=== PATIENT | female | born 1945 | race Caucasian/White ===

== ENCOUNTER 2016-10-15 08:30 | Day surgery (SDC) | payer MEDICARE ==
[2016-10-10 12:50] LABS: HEMATOCRIT 38.1 % (36.0-47.0); HEMOGLOBIN 12.4 g/dL (12.0-15.5); HGB HCT DIFFERENCE -0.9; MEAN CORPUSCULAR HEMOGLOBIN 31.4 pg (27.0-33.4); MEAN CORPUSCULAR HGB CONC 32.5 g/dL (32.0-36.0); MEAN CORPUSCULAR VOLUME 97 fl (80-97); RED BLOOD COUNT 3.94 10^6/uL (3.72-5.28); RED CELL DISTRIBUTION WIDTH 13.4 % (11.5-14.0); WHITE BLOOD COUNT 8.7 10^3/uL (4.0-10.5)
--- NOTE | 2016-10-10 13:00 | EKG REPORT ---
SEVERITY:- ABNORMAL ECG - SINUS RHYTHM LEFT BUNDLE BRANCH BLOCK : Confirmed by: Vladislav Zimmerman MD 10-Oct-2016 13:00:04
[2016-10-10 13:01] LABS: APPEARANCE,URINE CLEAR; BILIRUBIN,URINE NEGATIVE (NEGATIVE); GLUCOSE, URINE NEGATIVE (NEGATIVE); KETONES,URINE NEGATIVE (NEGATIVE); LEUKOCYTE ESTERASE,URINE LARGE (NEGATIVE); NITRITE,URINE NEGATIVE (NEGATIVE); PROTEIN,URINE NEGATIVE (NEGATIVE); URINE SPECIFIC GRAVITY 1.011; UROBILINOGEN,URINE NEGATIVE mg/dL (<2.0)
[2016-10-10 13:09] LABS: ANION GAP 15 (5-19); BLOOD UREA NITROGEN 22 mg/dL (7-20); CALCIUM 10.2 mg/dL (8.4-10.2); CARBON DIOXIDE 23 mmol/L (22-30); CHLORIDE 101 mmol/L (98-107); CREATININE RESULT 1.12 mg/dL (0.52-1.25); GLUCOSE 87 mg/dL (75-110); POTASSIUM 5.2 mmol/L (3.6-5.0); SODIUM 138.6 mmol/L (137-145)
[~2016-10-15 08:30] MED LIST: CEFAZOLIN 2 GM/D5W RTU 2 GM/50 ML RTUPB IV PRN; DEXMEDETOMIDINE INJ 80 MCG/20 ML VIAL IV ONE; LACTATED RINGERS 1000 ML IV PRN; LIDOCAINE 0.5% INJ-PF (5 MG/ML) 50 ML SDV SUBCUT PRN; MIDAZOLAM 2 MG/2 ML INJ ONE; MORPHINE SULFATE 10 MG/ML INJ ONE; PROPOFOL INJ 200 MG/20 ML VIAL IV ONE
[2016-10-15] MEDS ORDERED: LIDOCAINE 1%/EPINEPHRINE INJ 20 ML VIAL ONE (08:48)
[2016-10-15] MEDS ORDERED: BUPIVACAINE HCL 0.5 % INJ/PF 30 ML SDV ONE (08:48)
[2016-10-15] MEDS ORDERED: MORPHINE SULFATE 10 MG/ML INJ IV PRN (09:37)
[2016-10-15] MEDS ORDERED: DIPHENHYDRAMINE HCL 50 MG/ML VIAL IV PRN (09:37)
[2016-10-15] MEDS ORDERED: PROMETHAZINE HCL INJ 25 MG/1 ML VIAL IV PRN (09:37)
[2016-10-15] MEDS ORDERED: FENTANYL CITRATE INJ/PF 100 MCG/2 ML AMPUL IV PRN ×3 (09:37)
[2016-10-15] MEDS ORDERED: ONDANSETRON HCL INJ/PF 4 MG/2 ML SDV IV PRN ×2 (09:37→10:36)
--- NOTE | 2016-10-15 10:18 | Operative Report ---
Operative Report DATE OF SURGERY: 10/15/16 PREOPERATIVE DIAGNOSIS: Left medial meniscal tear POSTOPERATIVE DIAGNOSIS: Bucket-handle tear left medial meniscus. 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 Intact anterior cruciate ligament. Lateral meniscal tear. Grade 2 chondral malacia lateral compartment. Grade 1 chondral malacia the patellofemoral compartment OPERATION: Arthroscopic partial medial and lateral meniscectomy SURGEON: KRISTEN SUAREZ ANESTHESIA: LMAC PROCEDURE: With the patient supine on the operating table left looks terms prepped and draped in sterile fashion. The knee is insufflated with, should Marcaine, lidocaine, and epinephrine. Through medial and lateral patella portals. Subsequently medial lateral of toe portals are graded. Structuring our scope and debridements mentation. Joint is examined Mrs. Antonio fashion findings as above. A large bucket-handle tear of the medial meniscus is identified between 8:00 and 12:00 on the face of the dial. This is removed with a grabber and then trimmed with the mechanical shaver. There is exposed bone on the medial tibial plateau and fibrillated cartilage on the medial femoral condyle. In the lateral compartment there is grade 2 chondral malacia with chondral fissuring and the 5 mm protein be buried. There is a lateral degenerative meniscus tear from approximately 1:00 to 5:00 on the face the dial. This debrided using electro-frequency ablation probe. The joint is examined again Mrs. Medick fashion with no new findings. The initial mentation is removed. The portals reapproximated using nylon. A sterile compressive dressing was applied and the patient's returned to PACU in satisfactory condition.
[2016-10-15] MEDS ORDERED: ONDANSETRON HCL INJ/PF 4 MG/2 ML SDV ONE (10:25)
[2016-10-15] MEDS ORDERED: ACETAMINOPHEN 325 MG TABLET PO PRN (10:36)
[2016-10-15 14:29] VITALS: BP 110/54
== END 2016-10-15 14:10 | disposition home or self-care (01) ==
LOC: OROUT 08:30
PROVIDERS: ATTEND Orthopaedic Surgery
PROC: 0SBD4ZZ Excision of Left Knee Joint, Percutaneous Endoscopic Approach (ICD-10-PCS; 2016-10-15)
PROC: 0SBD4ZZ Excision of Left Knee Joint, Percutaneous Endoscopic Approach (ICD-10-PCS; principal; 2016-10-15 10:30)
DX: M25.562 Pain in left knee (principal); Z79.899 Other long term (current) drug therapy; M25.561 Pain in right knee; Z79.82 Long term (current) use of aspirin; Z79.1 Long term (current) use of non-steroidal anti-inflammatories (NSAID); I10 Essential (primary) hypertension; M19.90 Unspecified osteoarthritis, unspecified site; M22.42 Chondromalacia patellae, left knee; S83.212A Bucket-handle tear of medial meniscus, current injury, left knee, initial encounter; S83.282A Other tear of lateral meniscus, current injury, left knee, initial encounter; X58.XXXA Exposure to other specified factors, initial encounter
CPT/HCPCS: 93005; 36415 ×2; 84132; 85027; 80048; 81001; 71020; 93010; 29880; A9270; J2250; J3490 ×2; J2270; J2405; J2704; J0690; 1400

== ENCOUNTER 2016-11-03 19:01 | Observation (INO) | payer MEDICARE ==
--- NOTE | 2016-11-03 19:50 | ER Document Report ---
ED Medical Screen (RME) - General Stated Complaint: CHEST PAIN Notes: 71 year old female, started having chest pain (mid lower sternum, going through to back) at 5:30 PM while taking in horses, felt nauseated, symptoms lasted 45 minutes. Denies shortness of breath. Patient took ASA 324 mg. Patient denies any current symptoms. Symptoms recurred for a short time in waiting room. PMH HTN. Non-smoker, no FH [place]. TRAVEL OUTSIDE OF THE [place] IN LAST 30 DAYS: No - Related Data Allergies/Adverse Reactions: codeine [Codeine] Allergy (Severe, Verified 10/10/16 10:27) n and v meperidine HCl [From Demerol] Allergy (Severe, Verified 10/10/16 10:27) n and v celecoxib [From Celebrex] Allergy (Mild, Verified 10/10/16 10:27) rash Past Medical History - Past Medical History Cardiac Medical History: Reports: Hx Hypercholesterolemia, Hx Hypertension - on meds Denies: Hx Coronary Artery Disease, Hx Heart Attack Pulmonary Medical History: Denies: Hx Asthma, Hx Bronchitis, Hx COPD, Hx Pneumonia Neurological Medical History: Denies: Hx Cerebrovascular Accident, Hx Seizures Musculoskeltal Medical History: Reports Hx Arthritis - "all over" Past Surgical History: Denies: Hx Pacemaker - Immunizations Hx Diphtheria, Pertussis, Tetanus Vaccination: Yes - Tetanus only 03/20/11 Physical Exam - Vital signs Vitals: Temp Pulse Resp BP Pulse Ox 97.5 F 61 16 154/59 H 100 11/03/16 19:41 11/03/16 19:41 11/03/16 19:41 11/03/16 19:41 11/03/16 19:41 - Respiratory Respiratory status: No respiratory distress Breath sounds: No: Decreased air movement, Wheezing - Cardiovascular Rhythm: Regular. No: Tachycardia Heart sounds: Normal auscultation, S1 appreciated, S2 appreciated Murmur: Yes - 1/6 hear best in at RSB Course - Vital Signs Vital signs: Temp Pulse Resp BP Pulse Ox 97.5 F 61 16 154/59 H 100 11/03/16 19:41 11/03/16 19:41 11/03/16 19:41 11/03/16 19:41 11/03/16 19:41
[2016-11-03 21:25] LABS: ABSOLUTE EOSINOPHILS # (AUTO) 0.3 10^3/uL (0.0-0.6); ABSOLUTE LYMPHOCYTES (AUTO) 1.9 10^3/uL (0.5-4.7); ABSOLUTE MONOCYTES (AUTO) 0.6 10^3/uL (0.1-1.4); BASOPHILS % (AUTO) 0.5 % (0-2); EOSINOPHILS % (AUTO) 3.6 % (0-6); HEMATOCRIT 34.8 % (36.0-47.0); HEMOGLOBIN 11.5 g/dL (12.0-15.5); HGB HCT DIFFERENCE -0.3; LYMPHOCYTES % (AUTO) 23.9 % (13-45); MEAN CORPUSCULAR HEMOGLOBIN 31.6 pg (27.0-33.4); MEAN CORPUSCULAR HGB CONC 33.1 g/dL (32.0-36.0); MEAN CORPUSCULAR VOLUME 96 fl (80-97); MONOCYTES % (AUTO) 7.7 % (3-13); RED BLOOD COUNT 3.65 10^6/uL (3.72-5.28); SEGMENTED NEUTROPHILS % (AUTO) 64.3 % (42-78); WHITE BLOOD COUNT 7.8 10^3/uL (4.0-10.5)
[2016-11-03 21:42] LABS: ALANINE AMINOTRANSFERASE 33 U/L (9-52); ALBUMIN 4.3 g/dL (3.5-5.0); ALKALINE PHOSPHATASE 86 U/L (38-126); ANION GAP 8 (5-19); ASPARTATE AMINO TRANSFERASE 28 U/L (14-36); BILIRUBIN,TOTAL 0.5 mg/dL (0.2-1.3); BLOOD UREA NITROGEN 21 mg/dL (7-20); CALCIUM 10.1 mg/dL (8.4-10.2); CARBON DIOXIDE 28 mmol/L (22-30); CHLORIDE 103 mmol/L (98-107); CREATINE KINASE 67 U/L (30-135); CREATININE RESULT 1.13 mg/dL (0.52-1.25); GLUCOSE 103 mg/dL (75-110); POTASSIUM 4.7 mmol/L (3.6-5.0); SODIUM 139.1 mmol/L (137-145); TOTAL PROTEIN 7.9 g/dL (6.3-8.2)
--- NOTE | 2016-11-03 21:51 | EKG REPORT ---
SEVERITY:- ABNORMAL ECG - SINUS RHYTHM LEFT BUNDLE BRANCH BLOCK : Confirmed by: Cathie Savage 03-Nov-2016 21:50:32
[2016-11-03 21:53] LABS: CREATINE KINASE MB 0.48 ng/mL (<4.55); TROPONIN I 0.015 ng/mL
--- NOTE | 2016-11-03 22:33 | ER Document Report ---
ED Cardiac - General Mode of Arrival: Ambulatory Information source: Patient TRAVEL OUTSIDE OF THE [place] IN LAST 30 DAYS: No - HPI Patient complains to provider of: Chest pain Was the onset of pain: Sudden Chest pain location: Substernal Chest pain radiation location: Back Cardiac risk factors: Hypertension, Dyslipidemia Positive cardiac history: No Associated symptoms: Nausea/vomiting, Other - "felt hot" Exacerbated by: Denies Relieved by: Nothing <JOSE ANGEL OLVERA - Last Filed: 11/03/16 22:46> <JHOAN KESSLER - Last Filed: 11/04/16 04:48> - General Chief Complaint: Chest Pain Stated Complaint: CHEST PAIN Notes: Patient is a 71-year-old female that presents to the emergency department today with complaints of chest pain which began this evening around 1730. Patient states the pain lasted for approximately 45 minutes and radiated to her back. Patient states she initially thought it was indigestion however it was not relieved with Maalox. Patient states she was bringing her horses into the barn when her chest pain began. Patient states the pain subsided, but she decided to come to the emergency department and while in the waiting room her pain started again, lasting for 10-15 minutes. Patient states she was nauseated and "felt hot" as well. Patient denies any shortness of breath. Patient has not had a stress test in the past. (JOSE ANGEL OLVERA) - Related Data Allergies/Adverse Reactions: codeine [Codeine] Allergy (Severe, Verified 10/10/16 10:27) n and v meperidine HCl [From Demerol] Allergy (Severe, Verified 10/10/16 10:27) n and v celecoxib [From Celebrex] Allergy (Mild, Verified 10/10/16 10:27) rash Past Medical History - General Information source: Patient, [facility] Records - Social History Smoking Status: Never Smoker Cigarette use (# per day): No Frequency of alcohol use: None Drug Abuse: None Lives with: Family Family History: Reviewed & Not Pertinent Patient has suicidal ideation: No Patient has homicidal ideation: No - Past Medical History Cardiac Medical History: Reports: Hx Hypercholesterolemia, Hx Hypertension - Lisinopril Musculoskeltal Medical History: Reports Hx Arthritis - "all over" Past Surgical History: Reports: Hx Orthopedic Surgery - Knee surgery, 10/15/16 - Immunizations Hx Diphtheria, Pertussis, Tetanus Vaccination: Yes - Tetanus only 03/20/11 Hx Pneumococcal Vaccination: 06/25/09 <JOSE ANGEL OLVERA - Last Filed: 11/03/16 22:46> Review of Systems - Review of Systems Constitutional: See HPI, Other - "feeling hot" EENT: No symptoms reported Cardiovascular: See HPI, Chest pain Respiratory: denies: Short of breath Gastrointestinal: See HPI, Nausea. denies: Vomiting Genitourinary: No symptoms reported Female Genitourinary: No symptoms reported Musculoskeletal: No symptoms reported Skin: No symptoms reported Hematologic/Lymphatic: No symptoms reported Neurological/Psychological: No symptoms reported -: Yes All other systems reviewed and negative <JOSE ANGEL OLVERA - Last Filed: 11/03/16 22:46> Physical Exam <JOSE ANGEL OLVERA - Last Filed: 11/03/16 22:46> <JHOAN KESSLER - Last Filed: 11/04/16 04:48> - Vital signs Vitals: Temp Pulse Resp BP Pulse Ox 97.5 F 61 16 154/59 H 100 11/03/16 19:41 11/03/16 19:41 11/03/16 19:41 11/03/16 19:41 11/03/16 19:41 (JOSE ANGEL OLVERA) (JHOAN KESSLER) - Notes Notes: Physical Exam: General: Alert, appears well. HEENT: Normocephalic. Atraumatic. PERRL. Extraocular movements intact. Oropharynx clear. Neck: Supple. Non-tender. Respiratory: No respiratory distress. Clear and equal breath sounds bilaterally. Cardiovascular: Regular rate and rhythm. Abdominal: Normal Inspection. Non-tender. No distension. Normal Bowel Sounds. Back: Non-tender. No deformity or step off. Extremities: Moves all four extremities. Upper extremities: Normal inspection. Non-tender. Normal ROM. Lower extremities: Normal inspection. Non-tender. No edema. Normal ROM. Neurological: Normal cognition. AAOx4. Normal speech. Psychological: Normal affect. Normal Mood. Skin: Warm. Dry. Normal color. (JOSE ANGEL OLVERA) Course - Laboratory Result Diagrams: 11/03/16 21:00 11/03/16 21:00 <JOSE ANGEL OLVERA - Last Filed: 11/03/16 22:46> - Laboratory Result Diagrams: 11/03/16 21:00 11/04/16 03:35 - Diagnostic Test Radiology reviewed: Reports reviewed - EKG Interpretation by Me Rate: Normal Rhythm: NSR [employer]/QRS: LBBB <JHOAN KESSLER - Last Filed: 11/04/16 04:48> - Re-evaluation Re-evalutation: Patient is a 71-year-old female who comes in complaining of chest pain at rest. Patient with a history of high blood pressure and high cholesterol. Patient also recently had knee surgery. Discussed with the hospitalist service who will admit to telemetry observation. Of note, d-dimer was elevated. CTA chest was ordered but the patient went for a VQ scan ordered by the hospitalist service before the CTA. Patient has no difficulty breathing, tachycardia, or pleuritic chest pain. She is chest pain-free at the time of admission. Patient did take aspirin today. Understands agrees with plan. Of note, the patient has an old left bundle branch block on her EKG. Blood work is within normal limits. (JHOAN KESSLER) - Vital Signs Vital signs: Temp Pulse Resp BP Pulse Ox 97.7 F 73 19 142/58 H 100 11/04/16 03:08 11/04/16 03:08 11/04/16 03:08 11/04/16 03:08 11/04/16 03:08 (JOSE ANGEL OLVERA) (JHOAN KESSLER) - Laboratory Laboratory results interpreted by me: 11/03/16 11/03/16 11/03/16 21:00 21:00 21:00 RBC 3.65 L Hgb 11.5 L Hct 34.8 L D-Dimer 0.57 H BUN 21 H Est GFR ( Amer) 57 L Est GFR (Non-Af Amer) 47 L (JOSE ANGEL OLVERA) (JHOAN KESSLER) Discharge <JOSE ANGEL OLVERA - Last Filed: 11/03/16 22:46> - Discharge Admitting Provider: Hospitalist - [place] [facility] Admitted: Telemetry <JHOAN KESSLER - Last Filed: 11/04/16 04:48> - Discharge Clinical Impression: Chest pain Qualifiers: Chest pain type: other chest pain Qualified Code(s): R07.89 - Other chest pain Condition: Stable Disposition: ADMITTED OBSERVATION Scribe Attestation: 11/04/16 04:48 I personally performed the services described in the documentation, reviewed and edited the documentation which was dictated to the scribe in my presence, and it accurately records my words and actions. (JHOAN KESSLER) Scribe Documentation - Scribe Written by Scribe:: Matt Baires, [id number] 11/03/16 acting as scribe for :: Deedee <JOSE ANGEL OLVERA - Last Filed: 11/03/16 22:46>
[2016-11-03] MEDS ORDERED: ACETAMINOPHEN 325 MG TABLET PO PRN (23:32)
[2016-11-04] MEDS ORDERED: NORMAL SALINE 1000 ML 1,000 ML IV PRN ×2 (02:40→05:17)
--- NOTE | 2016-11-04 04:05 | PDOC H&P ---
History of Present Illness Admission Date/PCP: 11/04/16 02:47 Dr. Miguel Luna Patient complains of: chest pain History of Present Illness: NICOL RM is a 71 year old female with underlying hypertension, hyperlipidemia, and arthritis but no personal or family history of coronary artery disease who presents to the emergency room for evaluation of onset of lower substernal/upper epigastric pain that started approximate 5:30 PM on the as she was leading her horses back into their barn. Lasted about 45 minutes. Radiated to her back. No relief with Maalox. Eventually resolved on its own. She could only describe the pain as stating that it "just hurt." She came to the emergency room. In the waiting room, pain recurred lasting for 10-15 minutes. Associated nausea and "hot" sensation. No shortness of breath. Distant history of a similar milder episode of discomfort that was relieved with Zantac. No known peptic ulcer disease or underlying reflux. Status post arthroscopic repair of left meniscal tear along with "removal of debris," according to patient, 10/15/2016. Did not take any type of anticoagulant postoperatively. No history of pulmonary embolus or DVT. No recent long trip with prolonged inactivity, or unusual lower extremity swelling or tenderness. Distant history of probable superficial venous thrombosis, while on oral contraceptives. Stopped the oral contraceptives and only took aspirin. No prior cardiac workup. currently resting quietly, chest pain-free. Patient has been discussed with emergency room physician who evaluated the patient. . Laboratory results are listed in [employer] and are reviewed. X-ray summary results are listed below, with full report(s) reviewed. . EKG reviewed. And compared to a tracing from [place] of last month. Social history/personal habits: . 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 Allergies/adverse reactions are listed in [employer] and are reviewed. Home medications are reviewed by discussion with patient and are to be reconciled by nursing staff in [facility]. Home medications initially autopopulated into [employer] may not accurately reflect patient's true medications, dosages, and/or frequencies. Compliant with medications. REVIEW OF SYSTEMS: Constitutional: No fever or chills. Eyes: Wears glasses. ENT: No swallowing problems or complaints. No hearing problems or complaints. Pulmonary: No current complaints. Cardiovascular: See history and present illness. Gastrointestinal: See history and present illness. Skin: No current complaints, including rashes. Hematologic: No unusual easy bruising or bleeding. Neurologic: No current complaints, including numbness or tingling. Musculoskeletal: Joint pain from arthritis. Psychiatric: No current complaints, including anxiety or depression. Endocrine: No current complaints, including polyuria. Genitourinary: No current complaints, including dysuria. PHYSICAL EXAMINATION: 5 feet 2 inches tall. 71.6 kg. BMI 28.9 kg/m. Temperature 97.5. Pulse 73 and regular. 142/58. Respirations 19 and unlabored. 100 percent saturation on room air. Floor nurse Alli is present. Well-nourished well-developed elderly female appearing a number of years younger than her stated age. Pleasant awake alert and cooperative. No obvious distress other than perhaps mildly anxious. Skin is warm and dry. No grossly obvious evidence of rash in areas of skin examined. No subcutaneous nodules palpated. ENT: Hearing grossly normal to normal conversation. Tongue midline on protrusion pink and slightly tacky. Eyes: No scleral icterus. Pupils equal and reactive to light at 4 mm. [place] conjunctivae. Neck is supple and nontender to gentle active range of motion and palpation. Midline trachea. No palpable thyroid nodule mass enlargement or tenderness. Lymphatic: No palpable cervical or clavicular nodes. Neck and lymphatic exams limited by patient body habitus. Psychiatric: Reasonable insight into acute and chronic medical issues. Oriented to time location and why here. Lungs: Auscultation reveals clear and equal breath sounds bilaterally. No use of accessory respiratory muscles. Cardiovascular: Heart regular rate and rhythm, without gallop murmur or rub. No carotid or abdominal aortic bruits. No ankle or pedal edema. palpable dorsalis pedis pulses. Abdomen: soft, , slightly distended nontender with positive bowel sounds. Unable to adequately evaluate abdomen for masses or organomegaly due to distention. Compression of the upper epigastrium does seem to reproduce her previously noted chest discomfort. Sternal compression does not. Extremities: Feet are warm and dry. No calf tenderness to compression. No grossly obvious visual evidence of calf swelling. Gentle manipulation of lower extremities fails to reveal any obvious evidence of injury or instability to knees hips or ankles. Neurologic: Moves upper extremities grossly normally. Patellar reflexes absent. Absent Babinski. Light touch is intact at feet. Dorsiflexion and plantarflexion of feet 5 / 5 and symmetric. Past Medical History Cardiac Medical History: Reports: Hyperlipidema, Hypertension - Lisinopril Denies: Congestive Heart Failure, Coronary Artery Disease, Myocardial Infarction, Pulmonary Embolism Pulmonary Medical History: Denies: Asthma, Bronchitis, Chronic Obstructive Pulmonary Disease (COPD), Pneumonia EENT Medical History: Reports: Eyes - Glasses Denies: Ears, Throat Neurological Medical History: Denies: Hemorrhagic CVA, Ischemic CVA, Seizures Endocrine Medical History: Denies: Diabetes Mellitus Type 1, Diabetes Mellitus Type 2, Hyperthyroidism, Hypothyroidism Renal/ Medical History: Reports: None GI Medical History: Denies: Cirrhosis, Gastroesophageal Reflux Disease, Hepatitis, Peptic Ulcer Disease Musculoskeltal Medical History: Reports: Arthritis - "all over" Skin Medical History: Reports: None Denies: Eczema, Psoriasis Psychiatric Medical History: Denies: Alcohol Dependency, Depression, General Anxiety Disorder, Substance Abuse, Tobacco Dependency Hematology: Reports: Anemia - hx of Infectious Medical History: Denies: Hepatitis B, Hepatitis C Past Surgical History Past Surgical History: Reports: Orthopedic Surgery - Knee surgery, 10/15/16 Social History Information Source: Patient, Emergency Med Personnel, [facility] Records Lives with: Family Smoking Status: Never Smoker Frequency of Alcohol Use: None Drugs: None - Advance Directive Resuscitation Status: Full Code Surrogate healthcare decision maker:: and/or children Family History Family History: Reviewed & Not Pertinent, Malignancy Parental Family History Reviewed: Yes Children Family History Reviewed: Yes Sibling(s) Family History Reviewed.: Yes Medication/Allergy Home Medications: RX: Ascorbic Acid [Vitamin C] 1,000 mg PO DAILY 11/04/16 RX: Aspirin [Ecotrin 81 mg EC Tablet] 81 mg PO DAILY 11/04/16 RX: Calcium Carbonate/Vitamin D3 [Calcium 600 + Vit D Tablet] 2 tab PO DAILY RX: Ergocalciferol (Vitamin D2) [Vitamin D2] 2,000 units PO DAILY 11/04/16 RX: Lisinopril [Prinivil] 20 mg PO DAILY 11/04/16 RX: Lovastatin [Altoprev] 20 mg PO QHS 11/04/16 RX: Meloxicam [Mobic 7.5 mg Tablet] 7.5 mg PO DAILYP PRN 11/04/16 RX: Comb No.42/Folic Acid [Prena1 Chew Tablet] 1 tab PO DAILY 11/04/16 Allergies/Adverse Reactions: codeine [Codeine] Allergy (Severe, Verified 10/10/16 10:27) n and v meperidine HCl [From Demerol] Allergy (Severe, Verified 10/10/16 10:27) n and v celecoxib [From Celebrex] Allergy (Mild, Verified 10/10/16 10:27) rash Physical Exam Vital Signs: Temp Pulse Resp BP Pulse Ox 97.7 F 73 19 142/58 H 100 11/04/16 03:08 11/04/16 03:08 11/04/16 03:08 11/04/16 03:08 11/04/16 03:08 Results Impressions: Chest X-Ray 11/03/16 19:46 IMPRESSION: NO ACUTE RADIOGRAPHIC FINDING IN THE CHEST. Lung Scan-VQ NM 11/04/16 00:42 IMPRESSION: Intermediate probability for pulmonary emboli. Evaluation with dedicated CT angiogram chest recommended. Assessment & Plan - Diagnosis (1) Elevated d-dimer Is this a current diagnosis for this admission?: Yes (2) Hyperlipidemia Qualifiers: Hyperlipidemia type: unspecified Qualified Code(s): E78.5 - Hyperlipidemia, unspecified Is this a current diagnosis for this admission?: YesPlan: Lipid panel pending.Resume home medications as appropriate once these have been reviewed. (3) Anemia Qualifiers: Anemia type: unspecified type Qualified Code(s): D64.9 - Anemia, unspecified Is this a current diagnosis for this admission?: YesPlan: No need for transfusion at present time. (4) ARF (acute renal failure) Qualifiers: Acute renal failure type: unspecified Qualified Code(s): N17.9 - Acute kidney failure, unspecified Is this a current diagnosis for this admission?: YesPlan: Suspect prerenal. 1 L of normal saline. Follow-up chemistry. (5) Abnormal perfusion scan of lung Is this a current diagnosis for this admission?: YesPlan: Intermediate probability ventilation perfusion lung scan. Discussed with radiologist. We'll proceed with CT angiogram of chest after a liter normal saline infusion. Discussed with patient. No absolute contraindication to systemic anticoagulation if needed. (6) Chest pain Qualifiers: Chest pain type: other chest pain Qualified Code(s): R07.89 - Other chest pain; R07.8 - Other chest pain Is this a current diagnosis for this admission?: YesPlan: Suspect this is musculoskeletal in origin, but Patient will be placed under chest pain protocol. Patient understands to notify staff should chest pain recur. Serial troponin's . Repeat EKG. lipid panel. I have strongly urged patient to be careful getting out of bed, to avoid a fall with injury. Knee high SCDs for DVT prophylaxis. Along with subcutaneous heparin. Impression and plans were discussed with patient, who concurs. Time spent in evaluation and management of patient: 65 minutes.
[2016-11-04 04:08] LABS: ANION GAP 12 (5-19); BLOOD UREA NITROGEN 19 mg/dL (7-20); CALCIUM 9.6 mg/dL (8.4-10.2); CARBON DIOXIDE 27 mmol/L (22-30); CHLORIDE 105 mmol/L (98-107); CHOLESTEROL 167.74 mg/dL (0-200); CREATININE RESULT 0.94 mg/dL (0.52-1.25); Direct HDL 52 mg/dL (>40); GLUCOSE 126 mg/dL (75-110); POTASSIUM 3.9 mmol/L (3.6-5.0); SODIUM 143.9 mmol/L (137-145); TRIGLYCERIDES 107 mg/dL (<150)
[2016-11-04 04:18] LABS: PARTIAL THROMBOPLASTIN TIME 28.7 SEC (23.5-35.8); PROTHROMBIN TIME 13.6 SEC (11.4-15.4)
[2016-11-04 04:19] LABS: DIRECT LDL 87 mg/dL (<100)
[2016-11-04] MEDS ORDERED: MULTI VITAMIN PO SCH (10:00)
[2016-11-04] MEDS ORDERED: HEPARIN SOD (PORCINE) 5,000 UNIT/ML 1 ML SYRINGE SUBCUT SCH (10:00)
[2016-11-04] MEDS ORDERED: CHOLECALCIFEROL 2000 UNIT PO SCH (10:00)
[2016-11-04] MEDS ORDERED: ASPIRIN 81 MG TABLET, CHEWABLE PO ONE (11:30)
--- NOTE | 2016-11-04 11:53 | Physician Advisory Note ---
Physician Advisor ProgressNote .: Pursuant to the plan for [facility], I have reviewed the medical record for this patient. Physician Advisor Statement: Possible documentation opportunities if attending agrees: 1. "CP, likely due to ___" 2. "possible ARF, ruled out" - vs "ARF, likely due to ____[ATN, Acute cortical necrosis, medullary necrosis, post-procedural, post-traumatic, ... ] based on " [supporting evidence for dx] 3. Type of anemia: "chronic due to chr blood loss Fe Defic"? "chronic due to nutritional Fe/B12/folate defic"? "acute due to ____"? - (Hgb was 12.4 on Oct 10, now 11.5. MCV & RDW are both at ULN.) 4. Principal Dx: Please list as 1st dx in each note the main reason for pt being kept in hospital initially. As always, if concerned about any unstable VS or abnormal labs, please comment on them & note what doing about them, & please document each day the potential clinical problems you are concerned could occur if pt not kept in hospital for tx at this time. Discussion: 71yo female w/ chronic co-morbidities including HTN, OA, old LBBB, recent knee surgery - presented 2 to ED w/CP that recurred in waiting room. (+)N, no V. No F/C /S/cough. "[place] hot." (+) AFeb, HR 61, R16, BP 154/59. WBC 7.3, Hgb 1.5, BUN 21, Cr 1.13. EKG=LBBB ( old), D-dimer 0.57, V/Q indet. Attending ordered 1L NS over 4hrs, then CT-A chest. Cardiac enzymes serial. ASA, Lovastatin, I/Os, tele, f/u labs. Status: CP pts, with or without possibility of PE, should typically be Outpt Obs until proven otherwise. To consider making a pt Inpt status, attending needs to explicitly document reasons that tx of THIS pt at THIS time in inpatient hospital setting medically , typically for 2+ MNs, is reasonable & necessary to protect pt's health, safety , & medical condition. In this case, pt should be Outpt Obs unless attending "paints the picture" in documentation of why this CP pt with stable VS, mild anemia, & Cr that has normalized cannot be managed adequately as Outpt Obs with prompt d/c & close office f/u. Thanks for your help with documentation accuracy/specificity improvement! Gayatri Reeves MD [facility] Physician Advisor, Fellow of Hospital Medicine
[2016-11-04 13:09] VITALS: BP 144/68
--- NOTE | 2016-11-04 14:13 | PDOC DISCHARGE SUMMARY ---
General - Admit/Disc Date/PCP Admission Date/Primary Care Provider: 11/04/16 02:47 Discharge Date: 11/04/16 - Discharge Diagnosis (1) Chest pain Is this a current diagnosis for this admission?: Yes (2) Elevated d-dimer Is this a current diagnosis for this admission?: Yes (3) Hyperlipidemia Is this a current diagnosis for this admission?: Yes - Additional Information Resuscitation Status: Full Code Discharge Activity: Activity As Tolerated, Balance Activity w/Rest, Slowly Increase Activity Home Medications: Ascorbic Acid [Vitamin C] 1,000 mg PO DAILY 11/04/16 Aspirin [Ecotrin 81 mg EC Tablet] 81 mg PO DAILY 11/04/16 Calcium Carbonate/Vitamin D3 [Calcium 600 + Vit D Tablet] 2 tab PO DAILY Ergocalciferol (Vitamin D2) [Vitamin D2] 2,000 units PO DAILY 11/04/16 Lisinopril [Prinivil] 20 mg PO DAILY 11/04/16 Lovastatin [Altoprev] 20 mg PO QHS 11/04/16 Meloxicam [Mobic 7.5 mg Tablet] 7.5 mg PO DAILYP PRN 11/04/16 Comb No.42/Folic Acid [Prena1 Chew Tablet] 1 tab PO DAILY 11/04/16 History of Present Illness Patient complains of: Chest pain History of Present Illness: NICOL RM is a 71 year old female with underlying hypertension, hyperlipidemia, and arthritis but no personal or family history of coronary artery disease who presents to the emergency room for evaluation of onset of lower substernal/upper epigastric pain that started approximate 5:30 PM on the as she was leading her horses back into their barn. Lasted about 45 minutes. Radiated to her back. No relief with Maalox. Eventually resolved on its own. She could only describe the pain as stating that it "just hurt." She came to the emergency room. In the waiting room, pain recurred lasting for 10-15 minutes. Associated nausea an "hot" feeling. No shortness of breath. Distant history of a similar milder episode of discomfort that was relieved with Zantac. No known peptic ulcer disease or underlying reflux. Status post arthroscopic repair of left meniscal tear along with "removal of debris," according to patient, 10/15/2016. Did not take any type of anticoagulant postoperatively. No history of pulmonary embolus or DVT. No recent long trip with prolonged inactivity, or unusual lower extremity swelling or tenderness. Distant history of probable superficial venous thrombosis, while on oral contraceptives. Stopped the oral contraceptives and only took aspirin. No prior cardiac workup. Hospital Course Hospital Course: Patient is a 71-year-old; recently had arthroscopic surgery and was admitted with the diagnosis of chest pain Chest pain was precordial reproducible Upon evaluation in the ED she had an intermediate troponin, normal EKG and a high d-dimer chest pain Patient was monitored she cannot have any arrhythmia EKGs were repeated; she had an unchanged left bundle branch block Troponins were negative Lung scan showed mismatched defects; but CTA of the chest was negative for PE Pain is likely musculoskeletal in etiology Patient was advised to follow-up with service desk associate for a Cardiolite stress test 2- 3 weeks after discharge Patient to continue her prior medication regimen Physical Exam Vital Signs: Temp Pulse Resp BP Pulse Ox 98.0 F 70 18 144/68 H 99 11/04/16 13:06 11/04/16 13:06 11/04/16 13:06 11/04/16 13:06 11/04/16 13:06 Intake & Output 11/03/16 11/04/16 11/05/16 00:59 00:59 00:59 Intake Total 1100 Balance 1100 General appearance: PRESENT: no acute distress, well-developed, well-nourished Head exam: PRESENT: atraumatic, normocephalic Eye exam: PRESENT: conjunctiva pink, EOMI, PERRLA. ABSENT: scleral icterus Ear exam: PRESENT: normal external ear exam Mouth exam: PRESENT: moist, tongue midline Neck exam: ABSENT: carotid bruit, JVD, lymphadenopathy, thyromegaly Respiratory exam: PRESENT: clear to auscultation joanna. ABSENT: rales, rhonchi, wheezes Cardiovascular exam: PRESENT: RRR. ABSENT: diastolic murmur, rubs, systolic murmur Pulses: PRESENT: normal dorsalis pedis pul Vascular exam: PRESENT: normal capillary refill GI/Abdominal exam: PRESENT: normal bowel sounds, soft. ABSENT: distended, guarding, mass, organolmegaly, rebound, tenderness Rectal exam: PRESENT: deferred Extremities exam: PRESENT: full ROM. ABSENT: calf tenderness, clubbing, pedal edema Neurological exam: PRESENT: alert, awake, oriented to person, oriented to place , oriented to time, oriented to situation, CN II-XII grossly intact. ABSENT: motor sensory deficit Psychiatric exam: PRESENT: appropriate affect, normal mood. ABSENT: homicidal ideation, suicidal ideation Skin exam: PRESENT: dry, intact, warm. ABSENT: cyanosis, rash Results Laboratory Results: 11/04/16 03:35 11/04/16 11/04/16 03:35 03:35 Sodium 143.9 Potassium 3.9 Chloride 105 Carbon Dioxide 27 Anion Gap 12 BUN 19 Creatinine 0.94 Est GFR ( Amer) > 60 Est GFR (Non-Af Amer) 58 L Glucose 126 H Calcium 9.6 Triglycerides 107 Cholesterol 167.74 LDL Cholesterol Direct 87 VLDL Cholesterol 21.0 HDL Cholesterol 52 11/04/16 11/04/16 03:35 09:02 Troponin I < 0.012 < 0.012 Impressions: Chest X-Ray 11/03/16 19:46 IMPRESSION: NO ACUTE RADIOGRAPHIC FINDING IN THE CHEST. Chest/Abdomen CTA 11/04/16 00:00 IMPRESSION: NORMAL CTA OF THE CHEST. NO PULMONARY EMBOLI. Lung Scan-VQ NM 11/04/16 00:42 IMPRESSION: Intermediate probability for pulmonary emboli. Evaluation with dedicated CT angiogram chest recommended. Plan Discharge Plan: Discharged home Follow up with Dr. Louis service desk associate for stress testing as an outpatient Time Spent: Less than 30 Minutes
--- NOTE | 2016-11-05 00:03 | EKG REPORT ---
SEVERITY:- ABNORMAL ECG - SINUS RHYTHM LEFT BUNDLE BRANCH BLOCK : Confirmed by: Cathie Savage 05-Nov-2016 00:02:58
[2016-11-05] MEDS ORDERED: MULTIVITAMIN TABLET PO SCH (10:00)
[2016-11-05] MEDS ORDERED: CHOLECALCIFEROL (D3) 1,000 UNIT TABLET PO SCH (10:00)
[2016-11-05] MEDS ORDERED: ASPIRIN 81 MG TABLET, CHEWABLE PO SCH (10:00)
== END 2016-11-04 14:41 | disposition home or self-care (01) ==
LOC: ER 19:01 → UNDOADMOB 23:36 → INTOOBSV 23:36 → EH 23:36 → OBSVTOIN 23:36 → EH 11-04 02:47 → INTOOBSV 11-04 02:47 → EH 11-04 02:51 → 4N 11-04 02:51
PROVIDERS: ADMIT Family Medicine; ATTEND Family Medicine
DX: R07.9 Chest pain, unspecified (principal); R77.8 Other specified abnormalities of plasma proteins; E78.5 Hyperlipidemia, unspecified; D64.9 Anemia, unspecified; N17.9 Acute kidney failure, unspecified; R94.2 Abnormal results of pulmonary function studies
CPT/HCPCS: 93005 ×2; 99285; 36415 ×2; 82553; 82550; 85025; 85610; 85730; 80048; 80053; 84484 ×2; 85379; 80061; 71010; 78582; 71275; 93010 ×2; A9540; A9567; A9270; J1644; J7030; Q9969

== ENCOUNTER → 2017-08-31 | Outpatient (CLI) | payer MEDICARE ==
[2017-08-31 15:49] LABS: ABSOLUTE EOSINOPHILS # (AUTO) 0.2 10^3/uL (0.0-0.6); ABSOLUTE LYMPHOCYTES (AUTO) 1.7 10^3/uL (0.5-4.7); ABSOLUTE MONOCYTES (AUTO) 0.5 10^3/uL (0.1-1.4); ABSOLUTE NEUT (AUTO) 4.2 10^3/uL (1.7-8.2); BASOPHILS % (AUTO) 0.5 % (0-2); EOSINOPHILS % (AUTO) 3.6 % (0-6); HEMATOCRIT 36.7 % (36.0-47.0); HEMOGLOBIN 12.3 g/dL (12.0-15.5); HGB HCT DIFFERENCE 0.2; LYMPHOCYTES % (AUTO) 24.8 % (13-45); MEAN CORPUSCULAR HEMOGLOBIN 31.4 pg (27.0-33.4); MEAN CORPUSCULAR HGB CONC 33.4 g/dL (32.0-36.0); MEAN CORPUSCULAR VOLUME 94 fl (80-97); MONOCYTES % (AUTO) 7.8 % (3-13); RED BLOOD COUNT 3.91 10^6/uL (3.72-5.28); RED CELL DISTRIBUTION WIDTH 13.8 % (11.5-14.0); SEGMENTED NEUTROPHILS % (AUTO) 63.3 % (42-78); WHITE BLOOD COUNT 6.7 10^3/uL (4.0-10.5)
[2017-08-31 15:57] LABS: APPEARANCE,URINE CLEAR; BILIRUBIN,URINE NEGATIVE (NEGATIVE); GLUCOSE, URINE NEGATIVE (NEGATIVE); KETONES,URINE NEGATIVE (NEGATIVE); LEUKOCYTE ESTERASE,URINE SMALL (NEGATIVE); NITRITE,URINE NEGATIVE (NEGATIVE); PROTEIN,URINE NEGATIVE (NEGATIVE); UROBILINOGEN,URINE NEGATIVE mg/dL (<2.0)
[2017-08-31 16:06] LABS: ANION GAP 12 (5-19); BLOOD UREA NITROGEN 20 mg/dL (7-20); CALCIUM 9.8 mg/dL (8.4-10.2); CARBON DIOXIDE 24 mmol/L (22-30); CHLORIDE 104 mmol/L (98-107); CREATININE RESULT 1.11 mg/dL (0.52-1.25); GLUCOSE 80 mg/dL (75-110); POTASSIUM 4.8 mmol/L (3.6-5.0); SODIUM 140.4 mmol/L (137-145)
--- NOTE | 2017-08-31 16:41 | RADIOLOGY REPORT (SQ) ---
EXAM DESCRIPTION: CHEST PA/LATERAL COMPLETED DATE/TIME: 08/31/2017 3:26 pm REASON FOR STUDY: PRE OP COMPARISON: 11/03/2016 EXAM PARAMETERS: NUMBER OF VIEWS: two views TECHNIQUE: Digital Frontal and Lateral radiographic views of the chest acquired. RADIATION DOSE: NA LIMITATIONS: none FINDINGS: LUNGS AND PLEURA: No acute opacities, masses or pneumothorax. Similar chronic scarring in the left mid lung. No pleural effusion. MEDIASTINUM AND HILAR STRUCTURES: Stable. HEART AND VASCULAR STRUCTURES: Heart normal size. No evidence for failure. BONES: No acute findings. HARDWARE: None in the chest. OTHER: No other significant finding. IMPRESSION: No acute findings. TECHNICAL DOCUMENTATION: JOB ID: [id number] [place]-72 2010 [employer]- All Rights Reserved
--- NOTE | 2017-08-31 23:12 | EKG REPORT ---
SEVERITY:- ABNORMAL ECG - SINUS RHYTHM LEFT BUNDLE BRANCH BLOCK : Confirmed by: Cathie Savage 31-Aug-2017 23:11:05
== END ==
LOC: OD 14:27
PROVIDERS: ATTEND Orthopaedic Surgery
DX: Z01.818 Encounter for other preprocedural examination (principal); M17.12 Unilateral primary osteoarthritis, left knee
CPT/HCPCS: 36415; 71020; 80048; 81001; 85025; 93005; 93010

== ENCOUNTER 2017-09-28 06:36 | Inpatient (IN) | payer MEDICARE ==
[~2017-09-28 06:36] MED LIST changes: +BUPIVACAINE INJ/PF LIPOSOME/PF 266 MG/20 ML SDV INJ PRN; -CEFAZOLIN 2 GM/D5W RTU 2 GM/50 ML RTUPB IV PRN; +CEFAZOLIN INJ 1 GM VIAL IV PRN; -DEXMEDETOMIDINE INJ 80 MCG/20 ML VIAL IV ONE; +IBUPROFEN 800 MG in NORMAL SALINE 250 ML IV PRN; +LANSOPRAZOLE 15 MG TAB.RAP.DR PO PRN; -MIDAZOLAM 2 MG/2 ML INJ ONE; -MORPHINE SULFATE 10 MG/ML INJ ONE; +OXYCODONE HCL SR 10 MG TABLET PO PRN; -PROPOFOL INJ 200 MG/20 ML VIAL IV ONE; +VANCOMYCIN HCL 1,000 MG in DEXTROSE 5%-WATER 250 ML IV PRN
[2017-09-28] MEDS ORDERED: BUPIVACAINE INJ/PF LIPOSOME/PF 266 MG/20 ML SDV ONE (07:17)
[2017-09-28] MEDS ORDERED: THROMBIN (BOVINE) TOPICAL 20000 UNIT VIAL ONE (07:17)
[2017-09-28] MEDS ORDERED: THROMBIN (BOVINE) 5000 UNIT EPITAXIS KIT ONE (07:17)
[2017-09-28] MEDS ORDERED: FENTANYL CITRATE INJ/PF 100 MCG/2 ML AMPUL ONE (07:18)
[2017-09-28] MEDS ORDERED: MIDAZOLAM 2 MG/2 ML INJ ONE (07:18)
[2017-09-28] MEDS ORDERED: EPHEDRINE SULFATE INJ 50 MG/1 ML AMPULE ONE (07:18)
[2017-09-28] MEDS ORDERED: PROPOFOL INJ 200 MG/20 ML VIAL IV ONE (07:19)
[2017-09-28] MEDS ORDERED: ACETAMINOPHEN 100 ML IV ONE ×2 (07:19→15:44)
[2017-09-28] MEDS ORDERED: TRANEXAMIC ACID INJ/PF 1,000 MG/10 ML SDV IV ONE ×2 (07:19→13:00)
[2017-09-28] MEDS ORDERED: ONDANSETRON HCL INJ/PF 4 MG/2 ML SDV ONE (07:19)
[2017-09-28] MEDS ORDERED: LIDOCAINE 2% INJ-PF (20 MG/ML) 10 ML AMPUL ONE (07:30)
[2017-09-28] MEDS ORDERED: PROMETHAZINE HCL INJ 25 MG/1 ML VIAL IV PRN ×4 (08:51→21:24)
[2017-09-28] MEDS ORDERED: OXYCODONE-ACETAMINOPHEN 5-325 MG TABLET PO PRN ×2 (08:51)
[2017-09-28] MEDS ORDERED: DIPHENHYDRAMINE HCL 50 MG/ML VIAL IV PRN ×2 (08:51→09:44)
[2017-09-28] MEDS ORDERED: FENTANYL CITRATE INJ/PF 100 MCG/2 ML AMPUL IV PRN ×3 (08:51)
[2017-09-28] MEDS ORDERED: ONDANSETRON HCL INJ/PF 4 MG/2 ML SDV IV PRN ×2 (08:51→09:44)
[2017-09-28] MEDS ORDERED: MORPHINE SULFATE 10 MG/ML INJ IV PRN ×4 (08:51→21:30)
[2017-09-28] MEDS ORDERED: MEPERIDINE HCL/PF INJ 25 MG/1 ML DISP.SYRIN IV PRN (08:51)
--- NOTE | 2017-09-28 09:37 | Operative Report ---
Operative Report DATE OF SURGERY: 09/28/17 PREOPERATIVE DIAGNOSIS: Left knee arthritis OPERATION: Left knee arthroplasty SURGEON: KRISTEN SUAREZ [employer] REPRESENTATIVE: SARAH KRAUS ANESTHESIA: Spinal TISSUE REMOVED OR ALTERED: Bone to pathology ESTIMATED BLOOD LOSS: 100 PROCEDURE: Implants used: Femur: Klarissa triathlon #4 CR femur Tibia: #3 tibia Tibial liner: 13 mm CS insert Patella: 29 mm oval patella Procedure with the patient supine on the operating table the left the limb is prepped and draped in a sterile fashion. The limb was elevated for exsanguination and the tourniquet inflated to 280 torr. A standard midline median parapatellar approach the knee is taken. Access is gained to the femoral canal through the intercondylar notch. Intramedullary alignment instrumentation used to resect 10 mm of distal femur in 5 of valgus. Sizing guide indicated a size 4 femur. Appropriate cutting jig is then used to fashion anterior posterior and chamfer cuts. A trial reduction femurs performed and this is judged to be adequate. Attention was next turned to the tibia. Using an extra medullary alignment system 11 millimeters was resected off the lateral tibial plateau to make up for a medial tibial plateau defect. This is sized to a size 3 tibia. A trial reduction was now performed with a for femur and a 3 tibia using a 13 millimeters spacer. It is full extension and central patellofemoral tracking. The articular surface the patella was next resected using an oscillating saw. All trial implants were removed. Polymethylmethacrylate is mixed and used to cement the above implants in place. On adequate curing the cement excess cement was removed the tourniquet was deflated hemostasis obtained the wound is then closed in layers using interrupted Vicryl followed by radha. A sterile compressive dressing was applied and the patient returned to recovery room in satisfactory condition.
[2017-09-28] MEDS ORDERED: MORPHINE SULFATE 10 MG/ML INJ IM PRN (09:44)
[2017-09-28] MEDS ORDERED: MAG HYDROX/AL HYDROX/SIMETH SUSP 30 ML UDCUP PO PRN (09:44)
--- NOTE | 2017-09-28 11:23 | RADIOLOGY REPORT (SQ) ---
EXAM DESCRIPTION: KNEE LEFT 2 VIEWS COMPLETED DATE/TIME: 09/28/2017 10:19 am REASON FOR STUDY: Post OP -Long Cassette in PACU M17.12 UNILATERAL PRIMARY OSTEOARTHRITIS, LEFT KNE E COMPARISON: MRI 07/23/2017 NUMBER OF VIEWS: AP and lateral views left knee, portable technique TECHNIQUE: Digital radiographic images of the left knee post-procedure. LIMITATIONS: None. FINDINGS: BONES: No worrisome or unexpected findings post-procedure. DEVICE: Left total knee replacement in could. Patellar resurfacing SOFT TISSUES: No worrisome findings. Expected postoperative soft tissue changes. IMPRESSION: SATISFACTORY POSTOPERATIVE LEFT KNEE. TECHNICAL DOCUMENTATION: JOB ID: [id number] [employer]- All Rights Reserved
[2017-09-28] MEDS: PREGABALIN 75 MG CAPSULE PO SCH ×2 (12:47→20:50)
[2017-09-28] MEDS: OXYCODONE HCL SR 10 MG TABLET PO SCH ×2 (12:48→22:47)
[2017-09-28] MEDS: ONDANSETRON 4 MG TAB.RAPDIS PO PRN (13:06)
[2017-09-28] MEDS: MORPHINE SULFATE 10 MG/ML INJ IV PRN ×2 (15:27→16:46)
[2017-09-28] MEDS ORDERED: KETOROLAC TROMETHAMINE INJ/PF 30 MG/1 ML SDV ONE (20:34)
[2017-09-28] MEDS ORDERED: KETOROLAC TROMETHAMINE INJ/PF 30 MG/1 ML SDV IV PRN ×2 (20:37→21:23)
[2017-09-28] MEDS: IBUPROFEN 800 MG in NORMAL SALINE 250 ML IV SCH (20:49)
[2017-09-28] MEDS ORDERED: RIVAROXABAN 10 MG TABLET PO SCH (22:00)
[2017-09-28] MEDS ORDERED: VANCOMYCIN HCL 1,000 MG in DEXTROSE 5%-WATER 250 ML IV ONE (22:00)
[2017-09-28] MEDS ORDERED: VANCOMYCIN HCL INJ 1000 MG VIAL ONE (22:38)
[2017-09-29] MEDS: IBUPROFEN 800 MG in NORMAL SALINE 250 ML IV SCH ×3 (01:14→17:11)
[2017-09-29 06:09] LABS: HEMOGLOBIN 8.9 g/dL (12.0-15.5); MEAN CORPUSCULAR HEMOGLOBIN 31.8 pg (27.0-33.4); MEAN CORPUSCULAR HGB CONC 33.1 g/dL (32.0-36.0); MEAN CORPUSCULAR VOLUME 96 fl (80-97); PLATELET COUNT 148 10^3/uL (150-450); RED BLOOD COUNT 2.81 10^6/uL (3.72-5.28); WHITE BLOOD COUNT 7.1 10^3/uL (4.0-10.5)
[2017-09-29 06:34] LABS: ANION GAP 9 (5-19); BLOOD UREA NITROGEN 18 mg/dL (7-20); CALCIUM 8.9 mg/dL (8.4-10.2); CARBON DIOXIDE 23 mmol/L (22-30); CHLORIDE 107 mmol/L (98-107); GLUCOSE 105 mg/dL (75-110); POTASSIUM 4.3 mmol/L (3.6-5.0); SODIUM 139.1 mmol/L (137-145)
--- NOTE | 2017-09-29 06:39 | PDOC PROGRESS REPORT ---
Subjective Progress Note for:: 09/29/17 Subjective:: 72-year-old white female one day status post total left knee arthroplasty. Patient lying comfortably in hospital bed this morning reporting that she was much more comfortable overnight and no longer nauseous as she was postoperatively. Reason For Visit: LEFT KNEE ARTHRITIS Physical Exam Vital Signs: Temp Pulse Resp BP Pulse Ox 36.4 C 64 11 L 104/42 L 97 09/29/17 04:48 09/29/17 04:48 09/29/17 04:48 09/29/17 04:48 09/29/17 04:48 Intake & Output 09/27/17 09/28/17 09/29/17 06:59 06:59 06:59 Intake Total 3772 Output Total 2200 Balance 1572 General appearance: PRESENT: no acute distress, well-developed, well-nourished Head exam: PRESENT: atraumatic, normocephalic Respiratory exam: PRESENT: unlabored Pulses: PRESENT: normal dorsalis pedis pul, +2 pedal pulses bilateral Vascular exam: PRESENT: normal capillary refill Additional comments: Patient lying recumbent in hospital bed with bilaterally lower extremities in full extension. There is slight flexion contracture to the left knee. Her postoperative compression dressing is in place and is clean dry and intact. This is left in place. She has minimal pedal edema and brisk capillary refill to toes on bilateral lower extremities. Her sensory motor functions are intact and her distal neurovascular exam is intact. Musculoskeletal exam: PRESENT: ambulatory Additional comments: Patient has made progress with physical therapy ambulating to and from hospital bed to the restroom. She also notes she ambulated in the hallway. She will continue to work with physical therapy throughout her stay in the hospital to improve distance of ambulation and strength range of motion of left knee. Neurological exam: PRESENT: alert, awake, oriented to person, oriented to place , oriented to time, oriented to situation, CN II-XII grossly intact. ABSENT: motor sensory deficit Psychiatric exam: PRESENT: appropriate affect, normal mood. ABSENT: homicidal ideation, suicidal ideation Skin exam: PRESENT: dry, intact, warm. ABSENT: cyanosis, rash Results Laboratory Results: 09/29/17 05:52 09/29/17 05:52 WBC 7.1 RBC 2.81 L Hgb 8.9 L Hct 27.0 L MCV 96 MCH 31.8 MCHC 33.1 RDW 14.0 Plt Count 148 L Impressions: Knee X-Ray 09/28/17 09:45 IMPRESSION: SATISFACTORY POSTOPERATIVE LEFT KNEE. Assessment & Plan - Diagnosis (1) Arthritis of knee, left Is this a current diagnosis for this admission?: Yes - Plan Summary Plan Summary: 72-year-old white female one day status post total left knee arthroplasty. Patient makes progress with physical therapy and seems to have good pain control. She will continue to work with physical therapy throughout her stay at hospital to improve distance of ambulation and improve strength range of motion of left knee. Pending progress with physical therapy she will likely be discharged later this week.
[2017-09-29] MEDS: LANSOPRAZOLE 30 MG TAB.RAP.DR PO SCH (06:41)
[2017-09-29] MEDS: OXYCODONE HCL SR 10 MG TABLET PO SCH ×2 (09:37→22:01)
[2017-09-29] MEDS: ASPIRIN 81 MG TABLET, ENT COATED PO SCH (09:37)
[2017-09-29] MEDS: PREGABALIN 75 MG CAPSULE PO SCH ×2 (09:37→17:11)
[2017-09-29] MEDS: ACETAMINOPHEN 325 MG TABLET PO PRN (11:03)
[2017-09-30] MEDS: IBUPROFEN 800 MG in NORMAL SALINE 250 ML IV SCH ×2 (01:54→09:14)
[2017-09-30] MEDS: ONDANSETRON 4 MG TAB.RAPDIS PO PRN (02:15)
[2017-09-30] MEDS: LANSOPRAZOLE 30 MG TAB.RAP.DR PO SCH (05:16)
[2017-09-30 05:59] LABS: HEMATOCRIT 27.4 % (36.0-47.0); HEMOGLOBIN 9.2 g/dL (12.0-15.5); MEAN CORPUSCULAR HEMOGLOBIN 32.1 pg (27.0-33.4); MEAN CORPUSCULAR HGB CONC 33.7 g/dL (32.0-36.0); MEAN CORPUSCULAR VOLUME 96 fl (80-97); PLATELET COUNT 144 10^3/uL (150-450); RED BLOOD COUNT 2.87 10^6/uL (3.72-5.28); RED CELL DISTRIBUTION WIDTH 14.3 % (11.5-14.0); WHITE BLOOD COUNT 8.7 10^3/uL (4.0-10.5)
[2017-09-30] MEDS: OXYCODONE HCL IR 5 MG TABLET PO PRN ×2 (06:01→12:00)
--- NOTE | 2017-09-30 07:07 | PDOC DISCHARGE SUMMARY ---
General - Admit/Disc Date/PCP Admission Date/Primary Care Provider: AMRITA CHINCHILLA MD Discharge Date: 09/30/17 - Discharge Diagnosis (1) Arthritis of knee, left Is this a current diagnosis for this admission?: Yes - Additional Information Resuscitation Status: Full Code Discharge Diet: As Tolerated, Regular Discharge Activity: No Driving, No tub bath, Walk Frequently, Weigh Daily Home Medications: Ascorbic Acid [Vitamin C] 1,000 mg PO DAILY 11/04/16 Aspirin [Ecotrin 81 mg EC Tablet] 81 mg PO DAILY 11/04/16 Calcium Carbonate/Vitamin D3 [Calcium 600 + Vit D Tablet] 2 tab PO DAILY Ergocalciferol (Vitamin D2) [Vitamin D2] 2,000 units PO DAILY 11/04/16 Lisinopril [Prinivil] 20 mg PO DAILY 11/04/16 Lovastatin [Altoprev] 20 mg PO QHS 11/04/16 Meloxicam [Mobic 7.5 mg Tablet] 7.5 mg PO DAILYP PRN 11/04/16 Comb No.42/Folic Acid [Prena1 Chew Tablet] 1 tab PO DAILY 11/04/16 History of Present Illness History of Present Illness: NICOL RM is a 72 year old female admitted for elective left knee arthroplasty. Hospital Course Hospital Course: 72-year-old white female admitted to the OR for elective total left knee arthroplasty. She was taken to postanesthesia care in satisfactory condition. She was then taken to the surgical floor where she was seen by physical therapy to work towards weightbearing as tolerated on left lower extremity. Her pain was controlled by Dr. Luna, David MIXON and nursing staff. She made progress with physical therapy ambulating 250 feet independently. She will be discharged home today with home health nursing, home physical therapy, wheeled walker, bedside commode. Physical Exam Vital Signs: Temp Pulse Resp BP Pulse Ox 36.7 C 75 16 132/53 H 97 09/29/17 23:26 09/29/17 23:26 09/29/17 23:26 09/29/17 23:26 09/29/17 23:26 Intake & Output 09/29/17 09/30/17 10/01/17 06:59 06:59 06:59 Intake Total 3772 2807 Output Total 2200 Balance 1572 2807 General appearance: PRESENT: no acute distress, well-developed, well-nourished Head exam: PRESENT: atraumatic, normocephalic Respiratory exam: PRESENT: unlabored Pulses: PRESENT: normal dorsalis pedis pul, +2 pedal pulses bilateral Vascular exam: PRESENT: normal capillary refill Additional comments: Patient lying recumbent in hospital bed with bilateral lower extremities in full extension. There is slight flexion contracture of left knee. Patient's postoperative compression dressing is clean dry and intact. This dressing is removed this morning and OpSite surgical dressing is clean dry and intact. This is left in place. There is minimal pedal edema she has brisk capillary refill to toes on bilateral lower extremities, her sensory and motor functions are intact and her distal neurovascular exam is intact. Musculoskeletal exam: PRESENT: ambulatory Additional comments: Patient has made great progress of physical therapy ambulating 250 feet independently. She will continue to work with physical therapy at her home to improve strength and range of motion of left lower extremity. Neurological exam: PRESENT: alert, awake, oriented to person, oriented to place , oriented to time, oriented to situation, CN II-XII grossly intact. ABSENT: motor sensory deficit Psychiatric exam: PRESENT: appropriate affect, normal mood. ABSENT: homicidal ideation, suicidal ideation Skin exam: PRESENT: dry, intact, warm. ABSENT: cyanosis, rash Results Laboratory Results: 09/30/17 05:38 09/29/17 05:52 09/30/17 05:38 WBC 8.7 RBC 2.87 L Hgb 9.2 L Hct 27.4 L MCV 96 MCH 32.1 MCHC 33.7 RDW 14.3 H Plt Count 144 L Impressions: Knee X-Ray 09/28/17 09:45 IMPRESSION: SATISFACTORY POSTOPERATIVE LEFT KNEE. Plan Discharge Plan: 72-year-old white female with history of osteoarthritis of the left knee underwent elective total left knee arthroplasty. She will be discharged to her home today with home health nursing, home physical therapy, wheeled walker, bedside commode. She will continue to work with physical therapy to improve strength range of motion of left lower extremity and further independent ambulation. The visiting nurse service will change OpSite dressing when they see fit i.e. when it is saturated with philippe blood. She will follow-up with [facility] for surgery and Dr. Luna and Davdi MIXON 2 weeks postoperatively for reevaluation and staple removal. Time Spent: Less than 30 Minutes
[2017-09-30] MEDS: ASPIRIN 81 MG TABLET, ENT COATED PO SCH (09:20)
[2017-09-30] MEDS: PREGABALIN 75 MG CAPSULE PO SCH (09:20)
[2017-09-30] MEDS: ACETAMINOPHEN 325 MG TABLET PO PRN (09:21)
[2017-09-30 12:48] VITALS: BP 140/52
== END 2017-09-30 13:00 | disposition home health service (06) | DRG 470 ==
LOC: OROUT 06:36 → EDSTATUS 08:45 → 4S 09:44 → OROUT 11:20 → 4S 09-30 13:00
PROVIDERS: ADMIT Orthopaedic Surgery; ATTEND Orthopaedic Surgery
PROC: 0SRD0J9 Replacement of Left Knee Joint with Synthetic Substitute, Cemented, Open Approach (ICD-10-PCS; principal; 2017-09-28 08:45)
DX: M17.12 Unilateral primary osteoarthritis, left knee (principal); I10 Essential (primary) hypertension; Z79.82 Long term (current) use of aspirin; Z79.899 Other long term (current) drug therapy; Z80.9 Family history of malignant neoplasm, unspecified; Z90.710 Acquired absence of both cervix and uterus; Z87.81 Personal history of (healed) traumatic fracture
CPT/HCPCS: 01402; 36415; 80048; 85027; 88305; 88311; 94799; C9290; G8978-GP; G8979-GP; G8987-GO; G8988-GO; J0131; J0690; J1200; J1741; J1885; J2250; J2270; J2405; J2704; J3010; J3370; J3490; J7050; J7060; S0119

== ENCOUNTER 2019-10-22 13:41 | Emergency (ER) | payer MEDICARE ==
[2019-10-22 13:47] VITALS: BP 152/67
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
--- NOTE | 2019-10-22 14:55 | RADIOLOGY REPORT (SQ) ---
EXAM DESCRIPTION: KNEE LEFT 4 VIEW COMPLETED DATE/TIME: 10/22/2019 2:37 pm REASON FOR STUDY: fall, bilateral knee pain COMPARISON: None. NUMBER OF VIEWS: Four views. TECHNIQUE: AP, lateral, and both oblique radiographic images acquired of the left knee. LIMITATIONS: None. FINDINGS: MINERALIZATION: Normal. BONES: Intact prosthesis. No acute fracture or dislocation. No worrisome bone lesions. JOINT: No effusion. SOFT TISSUES: No soft tissue swelling. No radio-opaque foreign body. OTHER: No other significant finding. IMPRESSION: INTACT PROSTHESIS. NO RADIOGRAPHIC EVIDENCE OF ACUTE INJURY. TECHNICAL DOCUMENTATION: JOB ID: [id number] [employer]- All Rights Reserved Reading location - IP/workstation name: [email or web address]
--- NOTE | 2019-10-22 14:55 | RADIOLOGY REPORT (SQ) ---
EXAM DESCRIPTION: KNEE RIGHT 4 VIEWS COMPLETED DATE/TIME: 10/22/2019 2:37 pm REASON FOR STUDY: fall, bilateral knee pain COMPARISON: None. NUMBER OF VIEWS: Four views. TECHNIQUE: AP, lateral, and both oblique radiographic images acquired of the right knee. LIMITATIONS: None. FINDINGS: MINERALIZATION: Normal. BONES: No acute fracture or dislocation. Joint space narrowing with small osteophytes. No worrisome bone lesions. JOINT: No effusion. SOFT TISSUES: No soft tissue swelling. No radio-opaque foreign body. OTHER: No other significant finding. IMPRESSION: DEGENERATIVE CHANGES. NO RADIOGRAPHIC EVIDENCE OF ACUTE INJURY. TECHNICAL DOCUMENTATION: JOB ID: [id number] [employer]- All Rights Reserved Reading location - IP/workstation name: [email or web address]
== END 2019-10-22 15:50 | disposition home or self-care (01) ==
LOC: ER 13:41
DX: S80.01XA Contusion of right knee, initial encounter (principal); M13.861 Other specified arthritis, right knee; M79.89 Other specified soft tissue disorders; M25.561 Pain in right knee; M25.562 Pain in left knee; W19.XXXA Unspecified fall, initial encounter; Z96.652 Presence of left artificial knee joint; Z79.899 Other long term (current) drug therapy; Z88.8 Allergy status to other drugs, medicaments and biological substances; I10 Essential (primary) hypertension
CPT/HCPCS: 99283

== ENCOUNTER 2020-05-18 15:31 | Emergency (ER) | payer MEDICARE ==
[2020-05-18 15:38] VITALS: BP 145/57
--- NOTE | 2020-05-18 15:48 | ER Document Report ---
ED Extremity Problem, Lower - General Chief Complaint: Ankle Injury Stated Complaint: ANKLE INJURY Time Seen by Provider: 05/18/20 15:36 Primary Care Provider: [facility] [Provider Group] - Follow up as needed CORTES LAWRENCE MD [Primary Care Provider] - Follow up as needed Mode of Arrival: Ambulatory Information source: Patient Notes: 74-year-old female presented to ED for complaint of pain in her right ankle. The lateral aspect of the left ankle is tender to palpation and mildly edematous. She states she turned her ankle yesterday and then again today. She states she took some Tylenol just before coming to the emergency room and her pain now is down to a 2 but it was much higher before taking the Tylenol. She is alert oriented respirations regular nonlabored speaking in full sentences. She states she does have a history of a leaky valve with a heart murmur, high blood pressure, cholesterol, fractured wrist and ankle. She did have right ankle surgery with pins and plates and left knee replacement. She does not smoke drink or drug and states she never has. REVIEW OF SYSTEMS: CONSTITUTIONAL : Denies fever, chills, or sweats. Denies recent illness. EENT: Denies eye, ear, throat, or mouth pain or symptoms. Denies nasal or sinus congestion. CARDIOVASCULAR: Denies chest pain. RESPIRATORY: Denies cough, cold, or chest congestion. Denies shortness of breath, difficulty breathing, or wheezing. MUSCULOSKELETAL: Complains of pain and swelling to the lateral aspect of the left ankle SKIN: Denies rash or skin lesions. HEMATOLOGIC : Denies easy bruising or bleeding. ALL OTHER SYSTEMS REVIEWED AND NEGATIVE. VITAL SIGNS: Within normal limits. GENERAL: No acute distress, non-toxic appearance. . CHEST: Clear breath sounds bilaterally. No wheezes, rales, or rhonchi. CARDIAC: Regular rate and rhythm. S1 and S2, without murmurs, gallops, or rubs. VASCULAR: Mild pedal edema. Peripheral pulses normal and equal in all extremities. LYMPATHTIC: No lymphadenopathy noted. MUSCULOSKELETAL: Good range of motion of all major joints. Extremities without clubbing, cyanosis or edema. NEUROLOGICAL: Alert and oriented x 3. No focal sensory or strength deficits. Speech normal. Follows commands appropriately. PSYCHIATRIC: Normal Affect, judgement and mood. SKIN: Normal appearance with no rashes or lesions. TRAVEL OUTSIDE OF THE [place] IN LAST 30 DAYS: No - HPI Patient complains to provider of: Injury, Pain, Swelling Location: Ankle Occurred: Other - Yesterday and today Where: Home Onset/Duration: Gradual Quality of pain: Achy Severity: Moderate Pain Level: 2 Context: Twisted Recent injury: Yes Associated symptoms: Painful ambulation Exacerbated by: Hanging down, Movement, Walking Relieved by: Elevation, Ice, Rest - Related Data Allergies/Adverse Reactions: codeine [Codeine] Allergy (Severe, Verified 05/18/20 15:46) n and v meperidine HCl [From Demerol] Allergy (Severe, Verified 05/18/20 15:46) n and v celecoxib [From Celebrex] Allergy (Mild, Verified 05/18/20 15:46) rash Past Medical History - General Information source: Patient - Social History Smoking Status: Never Smoker Frequency of alcohol use: None Drug Abuse: None Lives with: Family Family History: Reviewed & Not Pertinent, Malignancy Patient has suicidal ideation: No Patient has homicidal ideation: No - Past Medical History Cardiac Medical History: Reports: Hx Hypercholesterolemia, Hx Hypertension - Lisinopril, Hx Heart Murmur, Other - Leaky valve Pulmonary Medical History: Reports: None EENT Medical History: Reports: None Neurological Medical History: Reports: None Endocrine Medical History: Reports: None Renal/ Medical History: Reports: None Malignancy Medical History: Reports: None GI Medical History: Reports: None Musculoskeletal Medical History: Reports Hx Arthritis - "all over" , Reports Hx Musculoskeletal Trauma Skin Medical History: Reports None Psychiatric Medical History: Reports: None Traumatic Medical History: Reports: Hx Fractures - right tib/fib Infectious Medical History: Reports: None Past Surgical History: Reports: Hx Hysterectomy, Hx Orthopedic Surgery - Right ankle plate and screws left knee replacement - Immunizations Hx Diphtheria, Pertussis, Tetanus Vaccination: Yes - Tetanus only 03/20/11 Hx Pneumococcal Vaccination: 06/25/09 Physical Exam - Vital signs Vitals: Temp Pulse Resp BP Pulse Ox 98.1 F 68 16 145/57 H 96 05/18/20 15:37 05/18/20 15:37 05/18/20 15:37 05/18/20 15:37 05/18/20 15:37 Course - Re-evaluation Re-evalutation: 05/18/20 16:23 The patient is nontoxic appearing with stable vitals. They are afebrile. Ankle exam shows no deformities with no obvious ligament instability. There is a normal pulse and sensation distally. There is no redness or signs of infection. X-rays show no acute fracture per the radiologist. Patient will be placed in an Epi wrap for comfort. Crutches will be offered and given if requested. Patient will be instructed to follow-up with not better in 1 week, sooner for increasing pain, fever, redness, numbness, tingling, weakness, any further concerns. Patient will be instructed to rest, ice, elevate their ankle. 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 She is able to bear weight and the Epi wrap did help. Discharge - Discharge Clinical Impression: Left ankle sprain Qualifiers: Encounter type: initial encounter Involved ligament of ankle: unspecified ligament Qualified Code(s): S93.402A - Sprain of unspecified ligament of left ankle, initial encounter Condition: Stable Disposition: HOME, SELF-CARE Additional Instructions: SPRAINED ANKLE: Your sprained ankle results from stretching or tearing of the ligaments which support the ankle. This usually results from twisting the foot inward and under. The ligaments will require time and protection in order to heal properly. Many ankle sprains are quite disabling, and should be taken seriously. The usual treatment for an ankle sprain is cold packs; protection with tape, splints, or wraps; elevation; and staying off the ankle for at least a day. As the ankle improves, you can walk IF it's not painful to bear weight. Sports are best postponed until healing is complete. More serious sprains usually require strengthening exercises after early healing. Your physician has assessed the seriousness of the ligament injury to your ankle. However, the treatment may change, depending on how your ankle progresses. If further exams were recommended, it is important that you follow through. Call the doctor if your foot becomes numb, painful, or severely swollen. EPI WRAP: A compression dressing (epi wrap) has been placed. This helps hold the area still. It limits swelling and internal bleeding. The wrap should be comfortably snug -- not tight. You should feel a sense of pressure, but not severe pain under the wrap. Unless the physician tells you otherwise, you can adjust the wrap for comfort. If the wrap causes symptoms suggesting it's too tight -- uncomfortable pressure, swelling or discoloration beyond the wrap, numbness, or severe pain -- you must loosen the wrap. If these symptoms don't resolve promptly, return for re-evaluation. ANKLE STIRRUP SPLINT: You are to use an ankle brace called a stirrup splint. This type of brace allows you to place greater stresses on the ankle without risk of re-injury, and is often used for more severe ankle injuries such as avulsion fractures and ligament ruptures. The splint can be worn over a sock or tape. For proper support, wear the splint with a shoe over it. It's important that the splint fit properly. Adjust the heel tension, if needed. If your splint has air bladders, peel back the bottom of each air bladder, then move the Velcro attachment of the heel strap up or down. Air bladder pressure can be adjusted by pulling up the valve at the top, threading the air tube down into the main bladder, then blowing air into the bladder or squeezing it out. The two sides of the stirrup can be moved forward or back on your ankle by changing the attachment of the main straps. If you are unable to use the ankle comfortably in the splint, return for re-evaluation. ICE & ELEVATION: Apply ice packs frequently against the painful area. Many different s chedules are recommended, such as "20 minutes on, 20 minutes off" or "one hour ice, two hours rest." If you need to work, you may need to go longer between ice treatments. You should plan to have the area ice packed AT LEAST one-fourth of the time. The ice should be applied over the wrap, tape, or splint, or over a layer of cloth -- not directly against the skin. Some ice bags have a built-in cloth and can be put directly on the skin. Your injured part should be elevated as much as possible over the next 48 hours. Try to keep the injury above the level of the heart. Avoid use of the injured area. Elevation and rest will decrease the swelling. Acetaminophen Acetaminophen may be taken for pain relief or fever control. It's much safer than aspirin, offering a wider range of "safe" dosages. It is safe during . Some brand names are Tylenol, Panadol, Datril, Anacin 3, Tempra, and Liquiprin. Acetaminophen can be repeated every four hours. The following are maximum recommended dosages: WEIGHT Dose Drops Elixir Chewable(80mg) (LBS.) drprs=droppers tsp=teaspoon 6 40 mg .4 ml (1/2) 6-11 80 mg .8 ml (full) 1/2 tsp 1 tab 12-16 120 mg 1 1/2 drprs 3/4 tsp 1 1/2 tabs 17-23 160 mg 2 drprs 1 tsp 2 tabs 24-30 240 mg 3 drprs 1 1/2 tsp 3 tabs 30-35 320 mg 2 tsp 4 tabs 36-41 360 mg 2 1/4 tsp 4 1/2 tabs 42-47 400 mg 2 1/2 tsp 5 tabs 48-53 480 mg 3 tsp 6 tabs 54-59 520 mg 3 1/4 tsp 6 1/2 tabs 60-64 560 mg 3 1/2 tsp 7 tabs 65-70 600 mg 3 3/4 tsp 7 1/2 tabs 71-76 640 mg 4 tsp 8 tabs 77-82 720 mg 4 1/2 tsp 9 tabs 83-88 800 mg 5 tsp 10 tabs >89 pounds or adults 650 mg to 900 mg Acetaminophen can be repeated every four hours. Maximum daily dose not to exceed 4000 mg. These maximum recommended dosages are slightly higher than the dosages written on the product container, but these dosages are very safe and well below the toxic dosage for acetaminophen. FOLLOW-UP CARE: If you have been referred to a physician for follow-up care, call the physicians office for an appointment as you were instructed or within the next two days. If you experience worsening or a significant change in your symptoms, notify the physician immediately or return to the Emergency Department at any time for re-evaluation. Forms: Elevated Blood Pressure Referrals: CORTES LAWRENCE MD [Primary Care Provider] - Follow up as needed [facility] [Provider Group] - Follow up as needed
--- NOTE | 2020-05-18 16:05 | RADIOLOGY REPORT (SQ) ---
EXAM DESCRIPTION: ANKLE LEFT COMPLETE IMAGES COMPLETED DATE/TIME: 05/18/2020 3:54 pm REASON FOR STUDY: turned ankle yesterday and today pain COMPARISON: None. NUMBER OF VIEWS: Three views. TECHNIQUE: AP, lateral, and oblique radiographic images acquired of the left ankle. LIMITATIONS: None. FINDINGS: MINERALIZATION: Osteopenia. BONES: No acute fracture or dislocation. The ankle mortise and talar dome are intact. JOINTS: No effusion SOFT TISSUES: The Achilles tendon silhouette is intact OTHER: Enthesophytes at the calcaneal insertions of the plantar fascia and Achilles tendon. IMPRESSION: No acute osseus abnormality of the left ankle. TECHNICAL DOCUMENTATION: JOB ID: [id number] [employer]- All Rights Reserved Reading location - IP/workstation name: [email or web address]
== END 2020-05-18 16:30 | disposition home or self-care (01) ==
LOC: ER 15:31
DX: S93.402A Sprain of unspecified ligament of left ankle, initial encounter (principal); M25.571 Pain in right ankle and joints of right foot; X50.9XXA Other and unspecified overexertion or strenuous movements or postures, initial encounter; Y92.009 Unspecified place in unspecified non-institutional (private) residence as the place of occurrence of the external cause; I10 Essential (primary) hypertension; Z87.891 Personal history of nicotine dependence; Z98.890 Other specified postprocedural states; Z96.652 Presence of left artificial knee joint; Z88.6 Allergy status to analgesic agent; Z88.5 Allergy status to narcotic agent; Z88.8 Allergy status to other drugs, medicaments and biological substances
CPT/HCPCS: 99283

== ENCOUNTER → 2020-06-30 | Outpatient (CLI) | payer MEDICARE ==
--- NOTE | 2020-06-30 11:24 | ER RDC ASSESSMENT REPORT ---
Intake - In the Last 14 days Have you traveled outside [place]?: No Have you been in close contact with someone CONFIRMED: Yes Worked in Healthcare?: No - Symptoms Subjective Fever([place] feverish): Yes Chills: No Muscule Aches: No Runny Nose: No Sore Throat: No Cough (New or worsening chronic cough): Yes Shortness of breath: No Nausea or Vomiting: No Headache: No Abdominal Pain: No Diarrhea(3 or more loose stools in last 24 hours): No - Do you have any of the following Chronic lung disease: Asthma or emphysema or COPD: No Cystic Fibrosis: No Diabetes: No High Blood Pressure: Yes Cardiovascular Disease: Yes Chronic Kidney Disease: No Chronic Liver Disease: No Chronic blood disorder like Sickle Cell Disease: No Weak immune system due to disease or medication: No Neurologic condition that limits movement: No Developmental delay - Moderate to Severe: No Recent (within past 2 weeks) or current : No Morbid Obesity (>100 pounds over ideal weight): No - Objective Temperature: 97.7 F Pulse Rate: 63 Respiratory Rate: 18 Blood Pressure: 161/70 - Patient reports history of hypertension, did not take her medication this morning O2 Sat by Pulse Oximetry: 100 Objective: Patient is a well-appearing 75-year-old female, who presents today for COVID-19 screening. Disposition: Home; Selfcare General - General Stated Complaint: Upper respiratory symptoms Mode of Arrival: Ambulatory Information source: Patient Notes: The patient was evaluated during the global COVID-19 pandemic. That diagnosis was suspected/considered upon initial presentation. Their evaluation, treatment, and testing was consistent with current guidelines for patients who present with complaints or symptoms that may be related to COVID-19. Patient reports having close contact exposure to a COVID-19 lab confirmed positive individual. Spouse is admitted to [facility] at this time and is COVID-19 positive. - HPI Patient complains to provider of: Upper respiratory symptoms Onset: Other - 2 weeks Onset/Duration: Persistent Quality of pain: No pain Severity: None Pain Level: Denies Associated symptoms: Nonproductive cough, Fever Exacerbated by: Denies Relieved by: Denies Similar symptoms previously: No Recently seen / treated by doctor: No - Related Data Allergies/Adverse Reactions: codeine [Codeine] Allergy (Severe, Verified 05/18/20 15:46) n and v meperidine HCl [From Demerol] Allergy (Severe, Verified 05/18/20 15:46) n and v celecoxib [From Celebrex] Allergy (Mild, Verified 05/18/20 15:46) rash Past Medical History - Social History Smoking Status: Never Smoker Cigarette use (# per day): No Chew tobacco use (# tins/day): No Smoking Education Provided: No Frequency of alcohol use: None Drug Abuse: None Occupation: Retired Lives with: Family Family History: Reviewed & Not Pertinent, Malignancy Patient has suicidal ideation: No Patient has homicidal ideation: No - Past Medical History Cardiac Medical History: Reports: Hx Hypercholesterolemia, Hx Hypertension - Lisinopril, Hx Heart Murmur Denies: Hx Atrial Fibrillation, Hx Congestive Heart Failure, Hx Coronary Artery Disease, Hx Heart Attack, Hx Peripheral Vascular Disease, Hx Pulmonary Embolism Pulmonary Medical History: Denies: Hx Asthma, Hx Bronchitis, Hx COPD, Hx Pneumonia Neurological Medical History: Denies: Hx Cerebrovascular Accident, Hx Seizures Endocrine Medical History: Denies: Hx Diabetes Mellitus Type 1, Hx Diabetes Mellitus Type 2, Hx Hyperthyroidism, Hx Hypothyroidism Renal/ Medical History: Denies: Hx Peritoneal Dialysis Malignancy Medical History: Denies: Hx Leukemia GI Medical History: Denies: Hx Cirrhosis, Hx Gastroesophageal Reflux Disease, Hx Hepatitis Musculoskeletal Medical History: Reports Hx Arthritis - "all over" , Denies Hx Fibromyalgia, Denies Hx Muscular Dystrophy, Reports Hx Musculoskeletal Trauma Skin Medical History: Denies Hx Eczema, Denies Hx Psoriasis Psychiatric Medical History: Denies: Hx Depression Traumatic Medical History: Reports: Hx Fractures - right tib/fib Infectious Medical History: Denies: Hx Hepatitis, Hx HIV Past Surgical History: Reports: Hx Hysterectomy, Hx Orthopedic Surgery - Right ankle plate and screws left knee replacement. Denies: Hx Pacemaker Physical Exam - General General appearance: Appears well In distress: None Notes: PHYSICAL EXAMINATION: GENERAL: Well-appearing and in no acute distress. HEAD: Atraumatic, normocephalic. EYES: sclera anicteric, conjunctiva are normal. ENT: nares patent. Moist mucous membranes. NECK: Normal range of motion, supple without lymphadenopathy. LUNGS: CTAB and equal. No wheezes rales or rhonchi. HEART: Regular rate and rhythm without murmurs. ABDOMEN: Soft, nontender, normal bowel sounds, no guarding. EXTREMITIES: Normal range of motion, no pitting edema. No cyanosis. BACK: No midline or CVA tenderness. NEUROLOGICAL: Cranial nerves grossly intact. Normal speech. Normal gait. PSYCH: Normal mood, normal affect. SKIN: Warm, Dry, normal color and turgor, no obvious lesions or rash noted. Diagnostic Results Laboratory Results: Patient advised at this time they are considered a Person Under Investigation (PUI) for the COVID-19 Coronavirus. They have been made aware it is currently taking 5-7 days to receive their results, and [facility] Department will call to advise them of a POSITIVE result, and an [facility] front desk team member will call to advise of a NEGATIVE result. Patient Education/Counseling Counseling/Education: Patient presents with upper respiratory symptoms worrisome for possible COVID- 19. Patient does not have symptoms worrisome as an emergency such as difficulty breathing, shortness of breath, chest pain, pressure, confusion or cyanosis. Patient appears suitable for discharge. Patient's vital signs are stable and patient is nontoxic in appearance. Good return precautions have been discussed with patient, patient verbalized understanding and is agreeable with discharge p harleen of care at this time. Patient provided COVID-19 discharge instructions to include: As a person under investigation for COVID-19, the [place] department of Health and Human Services, division of public health advises you to adhere to the following guidance until your test results are reported to you. If your test result is positive, you will receive additional information from your pr ovider and your local health department at that time. Remain at home until you are cleared by the health provider or public health authorities. Keep a log of visitors to your home, notify any visitors to your home of your isolation status. If you plan to move to a new address or leave the [facility], notify the local health department in your [facility]. Call your doctor or seek care if you have an urgent medical need. Before seeking medical care, call ahead to get instructions from the provider before arriving at the medical office clinic or hospital. Notify them that you are being tested for the virus that causes COVID-19 so that arrangements can be made, as necessary, to prevent transmission to others in the healthcare setting. Next, notify the local health department in your county. If a medical emergency arises and you need to call 911, inform dispatch and the first responders that you are being tested for the virus that causes COVID-19. Next, notify the local health department in your county. Guidance for worsening S/SX: For worsening symptoms, patient has been advised to contact their Primary Care Provider, or go to the nearest Emergency Department. RDC Discharge - Discharge Clinical Impression: COVID-19 Screening URI (upper respiratory infection) Qualifiers: URI type: unspecified URI Qualified Code(s): J06.9 - Acute upper respiratory infection, unspecified Condition: Stable Disposition: Home; Selfcare
[2020-06-30 11:25] VITALS: BP 161/70
== END ==
LOC: RDC 10:01
PROVIDERS: ATTEND Nurse Practitioner Family
DX: U07.1 COVID-19 (principal)
CPT/HCPCS: 99201; U0003; G0463; C9803; 87635; 99211